=== PATIENT | female | born 1965 | race Caucasian/White ===

== ENCOUNTER 2024-01-14 06:33 | Emergency (ER) | payer OTHER, SELFPAY ==
[2024-01-14 06:34] VITALS: BP 189/95; PULSE 99; RESP 16; TEMP 36.6; O2SAT 98
--- NOTE | 2024-01-14 08:19 | ED.DENTAL ---
HPI - Dental/Oral General Chief complaint: Dental/Oral Stated complaint: mouth infection Time Seen by Provider: 01/14/24 07:02 History of Present Illness HPI Narrative: patient is a 58-year-old female who presents ER with left-sided dental pain. Located at the area of tooth number 19. She has some irritation to the area and no facial swelling. Worsening last 3 days. No improvement with Tylenol 3 at home which she thinks it may be . No difficulty breathing or swallowing. Related Data Allergies Allergy/AdvReac Type Severity Reaction Status Date / Time latex Allergy Unknown Rash Verified 01/14/24 06:57 Review of Systems Constitutional: Constitutional: Denies chills and Denies fever(s) ENT: Denies dysphagia and Denies sore throat Comments: + dental pain Respiratory: Respiratory: Denies cough and Denies dyspnea PMFSH Past Medical History Medical History (Updated 01/14/24 @ 18:29 by Jaron Chua MD) Diabetes Family History Family History (Updated 06/23/16 @ 23:19 by DOCTOR UNKNOWN) Father Hypertension Grandparent Cerebrovascular accident Family history of coronary artery disease Family history of malignant neoplasm of male breast Mother Family history of diabetes mellitus in first degree relative Social History Social History Smoking status: Never smoker Exam Narrative: GENERAL: Well-appearing, well-nourished, and in no acute distress. HEAD: Normocephalic, atraumatic. ENT: Mucous membranes moist. cavitation where tooth 19. Is located. No fluctuant abscess but suspect early in infection as the gum is inflamed and irritated. No facial swelling. NECK: Supple. EXTREMITIES: Normal range of motion. No edema. NEURO: Alert and oriented x3. PSYCH: Normal mood and affect. Course Course Emergency Course: Discharge home with oral antibiotic. Pt request antifungal for a yeast infection. Vital Signs Vital signs: Vital Signs Temperature 97.8 F 01/14/24 06:34 Pulse Rate 99 01/14/24 06:34 Respiratory Rate 16 01/14/24 06:34 Blood Pressure 189/95 H 01/14/24 06:34 Pulse Oximetry 98 01/14/24 06:34 Oxygen Delivery Room Air 01/14/24 06:34 Temperature 97.8 F 01/14/24 06:34 Pulse Rate 91 01/14/24 08:38 Respiratory Rate 15 01/14/24 08:38 Blood Pressure 184/101 H 01/14/24 08:38 Pulse Oximetry 98 01/14/24 08:38 Oxygen Delivery Room Air 01/14/24 06:34 Discharge Plan Discharge Clinical Impression: Toothache Patient Disposition: Home, Self-Care Condition: Stable Instructions: Antibiotic Form, Toothache (ED) Additional Instructions: Return to the ER she can not breathe, he cannot swallow, you have worsening facial swelling, or you have additional concerns. Prescriptions: New amoxicillin-pot clavulanate 875-125 mg tablet 1 tablet PO Q12H Qty: 20 0RF fluconazole 150 mg tablet 150 mg PO DAILY Qty: 1 0RF hydrocodone-acetaminophen 5-325 mg tablet 1 tablet PO Q6H PRN (Reason: pain) Qty: 10 0RF Follow-up/Referrals: PHYSICIAN NOT ON STAFF,NONSTAFF [Non-Staff] - Stand Alone Forms: Work/School Release IP
[2024-01-14] MEDS: ONDANSETRON HCL ODT 4 MG TABLET PO (08:31)
[2024-01-14 08:38] VITALS: BP 184/101; PULSE 91; RESP 15; O2SAT 98
--- NOTE | 2024-01-14 08:47 | PC.NURSE ---
Pt declines [place] at time of discharge, declines pain med and script for pain med. States she has a headache and is stressed and wanting VS done, took them at time of request. Pt not wishing to be discharged until pain med is given upon her wishes. Pt requesting Tylenol 3, EDP Dr Chua made aware. Pt was given PO Zofran due to c/o nausea.
[2024-01-14] MEDS: KETOROLAC 30 MG/ML VIAL (*BKC) IM (09:04)
--- NOTE | 2024-01-14 09:05 | PC.NURSE ---
pt left script for [place]. would rather not have it. asked for IM medication prior to leaving ED. Toradol given to left deltoid before departure
== END 2024-01-14 09:07 | disposition home or self-care (01) ==
LOC: ANHED 08:32
PROVIDERS: Emergency Provider Emergency Medicine
DX: K08.89 Other specified disorders of teeth and supporting structures (principal); E11.9 Type 2 diabetes mellitus without complications
CPT/HCPCS: 96372; 99283; A9270; J1885